=== PATIENT | male | born 1965 | race Caucasian/White ===

== ENCOUNTER 2016-07-07 10:11 | Day surgery (SDC) | payer OTHER ==
[2016-07-07] MEDS ORDERED: LACTATED RINGERS 1,000 ML IV ONE ×2 (10:45→14:02)
[2016-07-07] MEDS ORDERED: MIDAZOLAM 2 MG/2 ML VIAL IVP ONE (12:54)
[2016-07-07] MEDS ORDERED: fentaNYL 250 MCG/5 ML VIAL IVP ONE (12:54)
== END 2016-07-07 10:12 | disposition home or self-care (01) ==
PROC: 0DBN8ZX Excision of Sigmoid Colon, Via Natural or Artificial Opening Endoscopic, Diagnostic (ICD-10-PCS; 2016-07-07)
PROC: 0DBP8ZX Excision of Rectum, Via Natural or Artificial Opening Endoscopic, Diagnostic (ICD-10-PCS; principal; 2016-07-07 11:30)
DX: Z12.11 Encounter for screening for malignant neoplasm of colon (principal); D12.5 Benign neoplasm of sigmoid colon; K62.1 Rectal polyp; K64.8 Other hemorrhoids; Z87.891 Personal history of nicotine dependence; Z82.3 Family history of stroke; Z80.1 Family history of malignant neoplasm of trachea, bronchus and lung
CPT/HCPCS: 45380; J3010; J7120

== ENCOUNTER 2019-08-04 17:02 | Emergency (ER) | payer OTHER ==
[2019-08-04 17:13] VITALS: BP 140/79
[2019-08-04] MEDS ORDERED: BUFFERED LIDOCAINE 10 ML SYRINGE SUBQ STA (17:23)
--- NOTE | 2019-08-04 17:24 | ED Physician Documentation ---
PD HPI UPPER EXT INJURY - Stated complaint Stated Complaint: RT FINGER INJURY - Chief complaint Chief Complaint: Ext Problem - History obtained from History obtained from: Patient - History of Present Illness Location: Right (He was out golfing, his golf ball went over the fence. He was climbing a fence and slipped a little bit and yanked his right pinky finger and now it is deformed.) Review of Systems Constitutional: reports: Reviewed and negative Nose: reports: Reviewed and negative Cardiac: reports: Reviewed and negative PD PAST MEDICAL HISTORY - Past Medical History Cardiovascular: None Respiratory: None Endocrine/Autoimmune: None GI: None : None HEENT: None Psych: None Musculoskeletal: None Derm: None - Past Surgical History General: Cholecystectomy - Present Medications Home Medications: Ambulatory Orders Medication Instructions Recorded Confirmed Hydrocodone/Acetaminophen 1 - 2 each PO Q6H PRN #14 tablet 08/04/19 [Hydrocodon-Acetaminophen 5-325] - Allergies Allergies/Adverse Reactions: Allergies Allergy/AdvReac Type Severity Reaction Status Date / Time No Known Drug Allergies Allergy Verified 08/04/19 17:13 PD ED PE NORMAL - Vitals Vital signs reviewed: Yes - General General: Alert and oriented X 3, No acute distress - Extremities Extremities: Other (There is an obvious deformity of the right pinky finger at the level of the PIP, it is medially angulated.) - Neuro Neuro: Alert and oriented X 3, Normal speech Results - Vitals Vitals: Vital Signs - 24 hr 08/04/19 17:10 Temperature 36.3 C L Heart Rate 83 Respiratory 16 Rate Blood Pressure 140/79 H O2 Saturation 96 Oxygen O2 Source Room air - Rads (name of study) Finger XR Radiology: EMP read contemporaneously Procedures - Splint (location) R 5th finger Splint applied by: Physician Type of splint: Metal foam finger splint Other: Patient tolerated well, No complications, Neurovascular intact - Reduction Body part reduced: Right, Finger Fracture or dislocation: Fracture dislocation Anesthesia: Digital block (2ml buffered lido) Reduction aftercare: Xray confirms reduction (XRAY was post reduction), Patient tolerated well Departure - Departure Disposition: 01 Home, Self Care Clinical Impression: Fracture/dislocation, finger, proximal/middle phalanx Condition: Good Record reviewed to determine appropriate education?: Yes Instructions: ED Dislocation Finger Redu, ED Fx Finger Closed Follow-Up: [facility] [Provider Group] Prescriptions: Hydrocodone/Acetaminophen [Hydrocodon-Acetaminophen 5-325] 1 - 2 each PO Q6H PRN #14 tablet PRN Reason: pain Comments: Keep the splint on and dry. After a few days you can start gentle range of motion exercises. Follow-up with the orthopedic surgeons within a week for recheck, return if worse. Discharge Date/Time: 08/04/19 18:14
--- NOTE | 2019-08-04 18:25 | XRAY Report ---
Reason: finger injury Procedure Date: 08/04/2019 Accession Number: [id number] / [id number] Procedure: XR - Finger(s) RT CPT Code: Final Report FULL RESULT: EXAM: RIGHT FIFTH DIGIT RADIOGRAPHY EXAM DATE: 08/04/2019 06:08 PM. CLINICAL HISTORY: Finger injury. COMPARISON: None. TECHNIQUE: 3 views. FINDINGS: Bones: Small bony fragment 3 mm adjacent to the PIP joint along the head of the proximal phalanx Joints: Normal. No subluxations. Soft Tissues: soft tissue swelling. IMPRESSION: Small bony fragment 3 mm along the head of the proximal phalanx may be a avulsion RADIA
== END 2019-08-04 18:14 | disposition home or self-care (01) ==
LOC: ED 17:02
DX: S62.626A Displaced fracture of middle phalanx of right little finger, initial encounter for closed fracture (principal); X50.1XXA Overexertion from prolonged static or awkward postures, initial encounter; Y93.39 Activity, other involving climbing, rappelling and jumping off; Y92.39 Other specified sports and athletic area as the place of occurrence of the external cause
CPT/HCPCS: 73140

== ENCOUNTER 2022-12-03 09:21 | Outpatient (CLI) | payer OTHER ==
--- NOTE | 2022-12-03 10:09 | Sleep Patient Instructions ---
Sleep Center Visit Summary - Patient Visit Information Reason for Visit: Initial consult for evaluation of sleep disordered breathing and other sleep issues. - Patient Instructions Instructions Attached: Sleep Study, Sleep Clinic Visit Additional Instructions: You will be completing a sleep study, either an in-lab polysomnography (PSG) or home sleep study (HST). You will follow-up in the sleep care office after the sleep study is completed to hear the results and talk about therapy, if needed. You will be called by our office staff to schedule this appointment, but you may contact us with any questions. - Clinic Information Contact: [facility] [address] [place] [address] [email or web address] T: [phone]
[2022-12-03 10:12] VITALS: BP 128/80; O2SAT 96
--- NOTE | 2022-12-03 10:12 | SLEEP CARE CONSULTATION ---
Information from patient questionnaire entered by aJcquelyn Resendez. I have reviewed and concur with the information entered by Jacquelyn Resendez. This document represents the service I personally performed and the decisions made by me, Carla Kelly ARNP. History of Present Illness Service Date and Time: 12/03/2022920 Reason for Visit: New patient Chief Complaint: reports: Unrefreshed sleep, Snoring, Excessive daytime sleepiness, Fatigue, Frequent awakenings at night Date of Onset: 15+ Usual bedtime: MIDNIGHT Time it takes to fall asleep: 15MIN Snores at night: Yes Observed to quit breathing while asleep: Yes Sleeps alone due to snoring: No Number of times waking at night: 5+ Reasons for waking at night: reports: Choking, Snoring, Gasping for air, Pain, Bathroom Toss, Turn, or Twitch while sleeping: Yes Recalls having dreams: Yes Usually gets out of bed at: 930AM Feels refreshed in the morning: No Morning headache: No Sleepy or fatigued during the day: Yes Ever fallen asleep while driving: Yes (drowsy driving; no accidents) Takes day naps: Yes (just on weekends; 1+ hours) Dreams during day naps: Yes Prior sleep studies: No Additional HPI information: I had the pleasure of seeing LARA RUELAS today regarding the possibility of him having a sleep disorder. His current complaints are excessive daytime sleepiness, fatigue, frequent night awakenings, snoring and unrefreshed sleep. He states he has a hard time getting good sleep, wakes up several times a night and feels like he is always tired. His tells him that he snores and that he pauses in breathing sometimes in sleep. She has told him he makes "funny noises" and will wake up but he does not remember. He states that sometimes he will wake up with "liquid" in the back of his throat and he cannot breathe. He will gag and choke occasionally with this as well as some acid reflux. He cannot breathe well through his nose and was seen by an ENT. He may be having surgery on his nose/sinuses. His ENT convinced him to come in for evaluation. 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 Patient is and lives in [place]. Have you smoked in the past 12 months: No Cigarettes per day (20/pack): 20 Years of smokin Quit date: 2011 Smoking Pack Years: 25.0 Alcohol use: Yes Alcohol amount and frequency: 5 DRINKS A WEEK Caffeine use: Yes Caffeine amount and frequency: 1 cup/drink A DAY Family History Family history of sleep disordered breathing: Yes Family Hx Sleep Apnea: Sibling: Snoring, Sleep apnea - Treated Allergies and Home Medications Known drug allergies: No Drug allergies reviewed: Yes Home medication list reviewed: Yes Allergy and home medication list: Allergies No Known Drug Allergies Allergy (Verified 12/02/22 11:35) Home Medications Medication Instructions Recorded Confirmed Last Taken Type Sustenance Fruits And Greens 1 PO DAILY 12/03/22 Unknown History Review of Systems Weight gain over past 5 years: 20 Cardiovascular: denies: high blood pressure Respiratory: reports: shortness of breath (when walking upstairs) Gastrointestinal: denies: heartburn Urinary: reports: frequency Neurological: denies: headaches Psychiatric: denies: anxiety, depression Ear/Nose/Throat: reports: sinus problems. denies: tonsillectomy, wisdom teeth removed Immunologic: denies: allergies to food or environment Physical Exam Vital signs obtained and entered by: JACQUELYN Luis MA Blood Pressure: 128/80 (LEFT ARM) Cuff size: regular Heart Rate: 85 O2 Saturation: 96 Height: 6 ft Weight: 234 lb 6.4 oz Body Mass Index: 31.8 BMI Classification: Obese Neck circumference: 19 Mouth and throat: narrow oropharynx Soft palate: long Hard palate: normal Uvula: long Uvula visualization: 0% Mallampati Class IV Tongue: enlarged in size with teeth hernandez on lateral edges Tonsils: small Neck: normal w/o lymphadenopathy or thyromegaly Heart: regular rate and rhythm Lungs: clear bilaterally Impression and Plan 1. Suspected Obstructive Sleep Apnea-Hypopnea Syndrome, as suggested by a history of loud and irregular snoring, observed cessation of breath while asleep, gasping or choking in sleep, frequent awakening during the night, unrefreshed sleep, cognitive impairment, and excessive daytime sleepiness. Narrow oropharynx and obesity are common predisposing factors for obstructive sleep apnea-hypopnea syndrome. I recommend proceeding to polysomnography to confirm the diagnosis and to assess severity. If the patient has significant sleep disordered breathing, a manual CPAP titration study will also be performed to find the optimal treatment pressure. I informed the patient of what the sleep studies involve and after some discussion, obtained agreement to proceed. The pathophysiology of obstructive sleep apnea-hypopnea syndrome was discussed with the patient and health risks of cardiovascular and cerebrovascular disease if not treated. Risks of drowsy driving discussed in detail and patient advised to avoid long distance driving and to toe puller at the first sign of drowsiness. Patient agreed to plan. * Schedule polysomnography. * Avoid long distance driving or driving when feeling sleepy. * Avoid alcohol, sedative and muscle relaxant around bedtime. * Attempt to lose weight. * Review instructions provided by trained office staff on how to prepare for the sleep study. * Return for follow-up after sleep study completed. Counseling Topics: Weight loss health impact Plan: PSG evaluation Visit Type: In Office Time Spent with Patient (minutes): 32 Provider Statement: I spent 100% of the Face to Face Visit with the patient with greater than 50% spent counseling the patient and coordination of care.
== END 2022-12-03 09:22 | disposition home or self-care (01) ==
LOC: SC 09:21
PROVIDERS: ATTEND Nurse Practitioner Family
DX: R06.83 Snoring (principal); G47.8 Other sleep disorders; R06.81 Apnea, not elsewhere classified; G47.10 Hypersomnia, unspecified; E66.9 Obesity, unspecified; Z68.31 Body mass index [BMI] 31.0-31.9, adult; Z87.891 Personal history of nicotine dependence
CPT/HCPCS: 99203; 99212

== ENCOUNTER 2023-02-28 19:43 | Outpatient (CLI) | payer OTHER | END 2023-02-28 19:44 | disposition home or self-care (01) | LOC: SC 19:43 | PROVIDERS: ATTEND Nurse Practitioner Family | DX: G47.33 Obstructive sleep apnea (adult) (pediatric) (principal); G47.61 Periodic limb movement disorder; E66.9 Obesity, unspecified; Z68.31 Body mass index [BMI] 31.0-31.9, adult | CPT/HCPCS: 95810 ==

== ENCOUNTER 2023-03-11 11:09 | Outpatient (CLI) | payer OTHER ==
--- NOTE | 2023-03-11 11:45 | Sleep Patient Instructions ---
Sleep Center Visit Summary - Patient Visit Information Reason for Visit: Sleep study follow-up - Patient Instructions Instructions Attached: CPAP Additional Instructions: You are being started on CPAP therapy with pressure setting at 4-15 cmH2O. You w ill need to call the sleep care office to set up your follow up once you have your APAP machine and we will schedule a visit to check compliance and response to therapy at that time. You may call the office with any concerns about pressure feeling too low or too much for adjustment, if needed. You should contact DME supplier for any questions or concerns about mask or equipment. Please call office to schedule a follow up appointment in the sleep care office one month after obtaining new device. - Clinic Information Contact: [facility] [address] [place] [address] [email or web address] T: [phone]
--- NOTE | 2023-03-11 11:51 | SLEEP CARE CONSULTATION ---
Information from patient questionnaire entered by Mitzy Resendez. I have reviewed and concur with the information entered by Mitzy Resendez. This document represents the service I personally performed and the decisions made by me, Carla Kelly ARNP. History of Present Illness Service Date and Time: 03/11/2023 1109 Initial [place] Sleepiness Scale score: 14 (12/03/22) Current [place] Sleepiness Scale score: 13 (03/11/23) Additional HPI information: LARA RUELAS returns for follow up and results of the recently performed polysomnography. The sleep study showed severe obstructive sleep apnea with an average AHI of 48.1 and kendal oxygen saturation of 83%. There was moderate PLMs not contributing to sleep fragmentation. I explained the pathophysiology behind obstructive sleep apnea. We then spent quite a bit of time discussing different treatment options. For mild obstructive sleep apnea, surgery and oral appliance are alternatives to nasal CPAP therapy but in moderate or severe cases, nasal CPAP is the most effective and reliable treatment. I reviewed the impact of weight changes on sleep apnea and strongly recommended losing weight. After some discussion, the patient opted to go with the nasal CPAP therapy. Nasal autoCPAP set at 4-15 cmH20 will be ordered with rationale explained. A manual titration study will be ordered if unable to find optimal pressure with office adjustments. I explained how CPAP machine works and what to expect when using the machine. Using CPAP every night in order to get used to it was emphasized. Patient advised to put CPAP mask on before getting into bed so as not to fall asleep without CPAP. To assist acclimation to CPAP use, it could also be used for a short time during day while reading or watching TV. The patient was instructed to call the CPAP supplier to discuss any mechanical problem that may occur. If the mask given is uncomfortable or is difficult to keep on through the night even with adjustment, contact the CPAP supplier as many will replace with another mask style if notified before 30 days. If snoring or perceives is not getting enough air or too much air from the machine, notify this office. Patient counseled not drink alcohol less than 4 hours before bedtime as it can increase snoring and apnea. Patient was cautioned about risks of drowsy driving until sleepiness symptoms resolve. Patient denies drowsy driving. Sleep Study - Results Type of Sleep Study: Polysomnography (COMPLETED 02/28/2023) Prior sleep studies: No Polysomnography/Home Sleep Study results: IMPRESSION: The quality of the study is good. The patient had slightly reduced sleep efficiency due to supervisor refractory products awakening. The sleep architecture was abnormal for sleep fragmentation and reduced amount of time spent in slow wave sleep (N3). Respiratory monitoring showed severe obstructive sleep apnea-hypopnea (AHI = 48.1) associated with frequent arousals, oxyhemoglobin desaturation and mild hypoxia (kendal oxygen saturation of 83%). The respiratory events occurred more frequently during supine sleep (supine AHI = 108.6; non-supine = 33.32). Snore was moderate to loud in intensity. There was moderate periodic leg movement of sleep not contributing to the sleep fragmentation. Cardiac rhythm was normal sinus rhythm without significant arrhythmia. No abnormal behavior (parasomnia) observed during the night. Allergies and Home Medications Known drug allergies: No Drug allergies reviewed: Yes Home medication list reviewed: Yes (no changes) Allergy and home medication list: Allergies No Known Drug Allergies Allergy (Verified 03/10/23 10:57) Review of Systems Review of systems same as previous: Yes (NO CHANGE) Physical Exam Vital signs obtained and entered by: MITZY Luis MA Blood Pressure: 137/89 (RIGHT ARM) Cuff size: regular Heart Rate: 86 O2 Saturation: 96 Height: 6 ft Weight: 238 lb Body Mass Index: 32.3 BMI Classification: Obese Impression and Plan 1. Obstructive Sleep Apnea-Hypopnea Syndrome, severe, with lowest oxygen saturation of 83%. Obviously this is the cause of the patients symptoms of unrefreshed sleep, and excessive daytime sleepiness. As mentioned above, the patient will be started on nasal autoCPAP therapy with pressure set at 4-15 cmH2 O. A manual titration study will be completed if unable to find optimal treatment pressure with office adjustments. Compliance guidelines also reviewed. A copy of compliance guidelines will be given for reference at check out. Because the apnea is more severe supine, I instructed to avoid sleeping supine using pillow positioning until able to start CPAP use. 2. Hypoxemia, mild, with a kendal oxygen saturation of 83% and 24.1 minutes spent under 90%. The baseline oxygen saturation was normal with an average oxygen saturation of 92%. 3. Periodic limb movement, moderate, that did not fragment patients sleep. Periodic limb movement of sleep (PLMS) is characterized by episodes of repetitive limb movements that occur during sleep and usually involve the lower limbs. The etiology is unknown. Caffeine can aggravate PLMS and should be avoided. Sleep hygiene methods can also improve sleep as well as lifestyle changes such as regular exercise. Patient was advised that no treatment is needed at this time. If symptoms increase, then further evaluation is indicated. 4. Obesity, unspecified. Currently patients BMI is 32.3. Obesity increases the risk of apnea, CPAP pressure requirements and overall health risks especially cardiovascular and diabetes. Thus patient is advised to lose weight. * Nasal auto CPAP therapy, pressure at 4-15 cm H2O. * Attempt to lose weight. * Avoid alcohol consumption near bedtime. * Avoid supine sleep until using CPAP. * The patient is again cautioned about driving until sleepiness completely resolves. * Return one month after CPAP obtained. I will assess response to therapy and compliance at that time. Counseling Topics: Sleeping position, Weight loss health impact Prescriptions: Auto CPAP Plan: Compliance visit for PAP therapy Visit Type: In Office Time Spent with Patient (minutes): 20 Provider Statement: I spent 100% of the Face to Face Visit with the patient with greater than 50% spent counseling the patient and coordination of care.
[2023-03-11 11:54] VITALS: BP 137/89; O2SAT 96
== END 2023-03-11 11:10 | disposition home or self-care (01) ==
LOC: SC 11:09
PROVIDERS: ATTEND Nurse Practitioner Family
DX: G47.33 Obstructive sleep apnea (adult) (pediatric) (principal); R09.02 Hypoxemia; G47.61 Periodic limb movement disorder; E66.9 Obesity, unspecified; Z68.32 Body mass index [BMI] 32.0-32.9, adult
CPT/HCPCS: 99212; 99213